=== PATIENT | male | born 1975 | race Caucasian/White ===

== ENCOUNTER 2017-04-29 10:15 | Emergency (ER) | payer OTHER ==
[~2017-04-29] VITALS: Ht 157.5 cm; Wt 90.0 kg
[2017-04-29 10:25] VITALS: Ht 157.5 cm; Wt 90.0 kg
[2017-04-29] MEDS ORDERED: CEPH-443 PO (11:34)
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
== END 2017-04-29 12:53 | disposition home or self-care (01) ==
LOC: FTE 10:15
DX: S62.607A Fracture of unspecified phalanx of left little finger, initial encounter for closed fracture (principal); V89.2XXA Person injured in unspecified motor-vehicle accident, traffic, initial encounter
CPT/HCPCS: 99283